=== PATIENT | male | born 1990 | race Caucasian/White ===

== ENCOUNTER 2021-11-30 19:02 | Outpatient (REF) | payer BC, SELFPAY ==
[2021-11-30 20:38] LABS: Abs Immature Grans 0.05 10^3/uL (0.0-0.06); Absolute Eosinophil Count 0.44 10^3/uL (0.0-0.7); Absolute Lymphocyte Count 3.52 10^3/uL (1.2-3.4); Absolute Monocyte Count 1.24 10^3/uL (0.1-0.8); Absolute Neutrophil Count 5.45 10^3/uL (1.2-6.7); Basophils % 0.9; Eosinophils % 4.1; HCT 46.8 % (40.0-50.0); HGB 15.6 g/dL (13.5-17.5); Immature Grans % 0.5; Lymphocytes % 32.6; MCH 28.5 pg (27.0-33.0); MCHC 33.3 % (32.0-36.0); MCV 85.6 fL (80-95); MPV 10.7 fL (8.0-11.0); Monocytes % 11.5; Neutrophils % 50.4; Nucleated RBC 0 %; Platelet Count 323 10^3/uL (130-400); RBC 5.47 10^6/uL (4.36-5.78); RDW 12.7 % (11.8-14.1); RDW-SD 39.9 fL
[2021-11-30 20:40] LABS: Bilirubin Negative (Negative); Blood Trace-lysed (Negative); Clarity Clear (Clear); Glucose Negative (Negative); Ketones Negative (Negative); Leukocyte Esterase Negative (Negative); Nitrite Negative (Negative); Urobilinogen 0.2 EU/dL (Up TO 0.2); pH 5.5 (5-8)
[2021-11-30 21:07] LABS: Bacteria Negative HPF (Negative); C & S Indicated? No; Crystals Negative HPF (Negative); Epithelial Cells Rare HPF (Negative); Mucus Negative (Negative); WBC 0-2 HPF (0-5)
[2021-11-30 21:17] LABS: ALT 82 U/L (16-63); AST 47 U/L (15-37); Albumin 4.3 g/dL (3.4-5.0); Alkaline Phosphatase 72 U/L (46-116); Anion Gap 12.7 mmol/L (3-11); BUN 9 mg/dL (7-18); Bilirubin, Total 0.7 mg/dL (0.2-1.0); CO2 26.3 mmol/L (21.0-32.0); CREATININE 0.8 mg/dL (0.70-1.30); Calcium 8.9 mg/dL (8.5-10.1); Chloride 102 mmol/L (98-107); Glucose 102 mg/dL (74-106); Potassium 3.8 mmol/L (3.5-5.1); Sodium 141 mmol/L (136-145); Total Protein 7.7 g/dL (6.4-8.2)
[2021-12-03 15:35] LABS: Chlamydia Result Negative (Negative); GC Result Negative (Negative)
== END 2021-11-30 19:03 | disposition home or self-care (01) ==
LOC: LBN 19:02
PROVIDERS: PCP Family Medicine; Visit Provider Physician Assistant
DX: R30.0 Dysuria (principal); R21 Rash and other nonspecific skin eruption; R39.9 Unspecified symptoms and signs involving the genitourinary system; Z11.3 Encounter for screening for infections with a predominantly sexual mode of transmission
CPT/HCPCS: 80053; 87491; 87591; 81003; 81015; 85025

== ENCOUNTER 2023-10-04 13:26 | Emergency (ER) | payer BC, SELFPAY ==
[2023-10-04] VITALS (17 sets, daily range): BP systolic 122–149; BP diastolic 81–97; PULSE 56–96; RESP 10–23; TEMP 37; O2SAT 99
--- NOTE | 2023-10-04 13:45 | RT.EKG_ITS ---
APPROVED REPORT Exam: Resting ECG Reason for Exam: Cocaine use Patient Location: E HR:74 bpm ECG Measurements Heart Rate 74 AXIS WI 147 P 60 QRSd 105 QRS 1 QT 405 T 40 QTc 451 Conclusion Sinus rhythm...normal P axis, V-rate 60- 99 Normal sinus rhythm at a rate of 74 with interventricular conduction delay. Normal axis. WI and QTc within normal limits. No acute injury pattern. No prior for comparison.
--- NOTE | 2023-10-04 13:55 | W.ED.GENAD ---
Discharge Plan Disposition Patient Disposition: Home Discharge Details Clinical Impression: Acute respiratory failure with hypoxia and hypercapnia, NAV (acute kidney injury) Primary Care Provider: Linden Stewart ED Provider: Codey Gruber Home Meds and New Rx's Prescriptions: New ondansetron 4 mg tablet,disintegrating 4 mg PO BID 5 Days Qty: 9 0RF buprenorphine-naloxone 8-2 mg tablet, sublingual 1 tab sublingual DAILY Qty: 6 0RF Rx Instructions: You may take 1 tablet/day. If you still feel nauseous and sweating and as if you are in withdrawal you may take a second tablet. Please do not exceed more than 2 tablets/day. No Action sucralfate [Carafate] 1 gram tablet 1 g PO Q6H Qty: 28 0RF Hold Instructions: Pt Stopped/Never Started omeprazole 40 mg capsule,delayed release(DR/EC) 40 mg PO DAILY Qty: 90 0RF Hold Instructions: Pt Stopped/Never Started Discharge Instructions Additional Instructions: You were discharged from the emergency department with a short course of Suboxone which you should take as directed. Please take 1 tablet this afternoon or evening when you begin feeling symptoms of withdrawal. If you still feel symptoms of withdrawal 30 to 45 minutes after taking your first tablet you may take a second. Please do not take more than 2 tablets/day. The [facility] clinic in [place] will follow-up with you in 2 days. If you have any concerns please return to the emergency department. You are also receiving a prescription for nausea medicines which you should take as directed. Please call the [facility] clinic on Friday [phone] HPI General Date/Time Provider Initiated Documentation: 10/04/23 13:40. HPI Narrative: MDM This is an overall well-appearing normothermic and not tachycardic 33-year-old male status post overdose requiring additional naloxone 0.5 mg with mild hypoxia for which patient will undergo chest x-ray. No signs of ischemia on ECG however will obtain troponin to assess for any myocardial injury given cocaine use. No pain or proportion to suggest necrotizing soft tissue infection. Patient is high risk for overdose given reported overdose 2 days ago. He has previously felt suicidal. He is not endorsing suicidal ideation at the moment. We will assess basic electrolytes and CBC in the event that the patient requires a naloxone drip and hospitalization. Patient is interested in a recovery room nurse and a Jaylene patch. 2:17 PM PCO2 61 mmHg. 2:26 PM Patient was placed on end-tidal CO2. He was having difficulty waking up. As a result we will start a naloxone drip at two thirds a wake-up dose. Given that he required 0.5 mg naloxone to wake him up two thirds a wake-up dose is 0.33 mg. When scaled to micrograms per hour per kilogram this translates to a 3 mcg/kg/h. 2:40 PM Patient metabolic panel showing NAV. Hyperglycemia but no anion gap normal bicarbonate?not consistent with DKA. 2:55 PM Patient is amenable to hospitalization. Given history of alcohol use will place on a CIWA protocol. 3:24 PM I spoke with Dr. Way from the hospitalist team. He reported that unfortunately we did not have an ICU bed. As result we will discontinue naloxone drip. Patient began vomiting. We will treat with ondansetron. We will calculate a calcium score and initiate treatment with buprenorphine if patient scores above 8. Will refer to the [facility] clinic and sent home with buprenorphine. Patient is not on methadone. Patient will stay with his former where he does not have access to heroin. Former feels comfortable with this plan as does patient. Patient has not met with a recovery room nurse. I offered the patient transfer however he declined. 3:54 PM Patient is not requiring supplemental oxygen. He has been off of the naloxone drip for approximately 30 minutes. His COWS score is 6. We will hold buprenorphine at this point in time and reassess COWS score. 4:15 PM Patient continues to be breathing well on room air. He has not required additional reversal. 4:30 PM I met with the patient again and he was alert. He denied suicidal ideation. He had taken buprenorphine/naloxone in the past so he was familiar with the effects. He had taken 4 mg doses. I counseled him on using one of the 8 mg buprenorphine tablets and waiting 30 to 45 minutes. We discussed withdrawal symptoms including nausea vomiting and yawning, sweating, restlessness, runny nose bone or joint aches nausea vomiting gooseflesh and yawning. If his symptoms of withdrawal were still significant then I advised him to take a second tablet. I advised him to take no more than 2 tablets/day. I prescribed him a total of 3 days of buprenorphine. Chronic conditions affecting the care of the patient: N/A History obtained from an outside historian: Paramedics External record review: [facility] [place] EMR Diagnostic interpretations performed by me: Per my independent interpretation chest x-ray shows: No acute cardiopulmonary process. Per my independent interpretation EKG shows: Normal sinus rhythm at a rate of 74 with interventricular conduction delay. Normal axis. CA and QTc within normal limits. No acute injury pattern. No prior for comparison. Medications: Naloxone Social determinants of health affecting disposition: N/A Management discussed with: Hospitalist Treatment/interventions considered: Hospitalization but deferred given lack of ICU bed Response to therapies provided: Improved respiratory rate status post naloxone HPI This is a 33-year-old male arrived to the emergency department via paramedics in the setting of an overdose. Patient reportedly overdosed on crack and heroin by smoking. He reportedly smoked 2 bags this morning. He has used IV cocaine and heroin several days ago. He also was resuscitated with outpatient naloxone by paramedics 2 days ago and was not transported to the emergency department. His is in the room with him and notes prior suicidal ideation. Patient is a daily tobacco user and also drinks 12 or more beers per day. He has a history of shakes when he does not drink alcohol but has never been hospitalized. He takes no routine medications. He denies any medical problems. Fevers chills nausea vomiting chest pain but does endorse some shortness of breath. Exam General: Well-appearing in no acute distress speaking in complete sentences. Wearing nasal cannula. Head: Normocephalic, atraumatic. Eye: Extraocular eye movements intact. No conjunctival injection. No scleral icterus. Pupils equal reactive 3 to 2 mm. Ear, nose, mouth, throat: Grossly normal inspection. Normal voice, handling secretions normally. Neck: Trachea midline. Cardiovascular: Well-perfused distal extremities. Regular rate and rhythm Respiratory: Nonlabored respiration. Clear lungs bilaterally Gastrointestinal: Nondistended abdomen. Soft nontender Musculoskeletal: No significant lower extremity edema edema. Moving all 4 extremities spontaneously. Skin: Normal for age and race, grossly normal temperature and turgor. No acute rash. Neurologic: Alert and appropriate, no apparent acute deficits. GCS 15 Psychiatric: Mood and manner are appropriate. Grooming and personal hygiene are appropriate. Related Data Home Medications Medication Instructions Recorded Confirmed omeprazole 40 mg capsule,delayed 40 mg PO DAILY #90 caps 05/22/22 10/04/23 release sucralfate 1 gram tablet (Carafate) 1 g PO Q6H #28 tabs 05/22/22 10/04/23 buprenorphine 8 mg-naloxone 2 mg 1 tab sublingual DAILY #6 tabs 10/04/23 sublingual tablet ondansetron 4 mg disintegrating 4 mg PO BID 5 days #9 tabs 10/04/23 tablet Previous Rx's Medication Instructions Recorded omeprazole 40 mg capsule,delayed 40 mg PO DAILY #90 caps 05/22/22 release sucralfate 1 gram tablet (Carafate) 1 g PO Q6H #28 tabs 05/22/22 buprenorphine 8 mg-naloxone 2 mg 1 tab sublingual DAILY #6 tabs 10/04/23 sublingual tablet ondansetron 4 mg disintegrating 4 mg PO BID 5 days #9 tabs 10/04/23 tablet Allergies Allergy/AdvReac Type Severity Reaction Status Date / Time sulfamethoxazole Allergy Verified 10/04/23 13:27 [From Bactrim] trimethoprim [From Bactrim] Allergy Verified 10/04/23 13:27 General Stated Complaint: OD/Poison ALLAN: 3 PFSH All Active Problems (Updated 10/04/23 @ 14:42 by Codey Gruber MD) NAV (acute kidney injury) (Acute) Acute respiratory failure with hypoxia and hypercapnia (Acute) Medical History ADHD (attention deficit hyperactivity disorder) Anxiety Chronic bronchitis Chronic otitis media Depression Epistaxis High risk sexual behavior History of frequent headaches History of substance abuse Ingrown toenail Learning disability Social History (Updated 05/29/22 @ 10:34 by MARY Ortiz) Smoking/Tobacco Use Status: Current every day Smoking risk assessment performed?: Yes Alcohol Intake: current Alcohol Intake frequency: 3 or more drinks per day Alcohol type: beer Details: Avg. 6 pack/day Drug use: Daily Substance use type: does not use Course Vital Signs Vital signs: Vital Signs Temperature 37.0 C 10/04/23 13:28 Pulse 88 10/04/23 13:28 Respiratory Rate 20 10/04/23 13:28 Blood Pressure 145/94 H 10/04/23 13:28 Pulse Oximetry 99 10/04/23 13:28 Temperature 37.0 C 10/04/23 13:28 Pulse 78 10/04/23 13:30 Pulse 85 10/04/23 13:31 Respiratory Rate 17 10/04/23 13:31 Respiratory Effort Normal 10/04/23 13:32 Respiratory Depth Normal 10/04/23 13:32 Respiratory Pattern Normal 10/04/23 13:32 Blood Pressure 145/94 H 10/04/23 13:30 Blood Pressure Mean 108 10/04/23 13:30 Blood Pressure Position Sitting 10/04/23 13:28 Pulse Oximetry 99 10/04/23 13:28 Oxygen Delivery Method Room Air 10/04/23 13:28 Oxygen Flow Rate 0 10/04/23 13:28 Critical Care Time Critical Care Time Critical Care Time: Yes Total Critical Care Time: 30 Attestation: Acute respiratory failure hypoxia
[2023-10-04] MEDS: Normal Saline 500 ML IV ×2 (13:59→15:31)
[2023-10-04 14:12] LABS: BE (Venous) 7 mmol/L (-2-3); HCO3 (Venous) 32 mmol/L (23-28); O2 Sat (Venous) 54 %; TCO2 (Venous) 28 mmol/L (24-29); pH (Venous) 7.33 (7.31-7.41); pO2 (Venous) 29 mmHg
--- NOTE | 2023-10-04 14:16 | DI.RAD_ITS ---
Exam(s) XR PORTABLE CHEST AP EXAM: XR PORTABLE CHEST AP CLINICAL HISTORY: Hypoxia. TECHNIQUE: 2D digital imaging was performed. COMPARISON: No exams were available for comparison FINDINGS: Single AP portable view. Heart size is upper normal. The mediastinum is not widened. Lungs are clear. No infiltrates nor obvious pleural effusions. IMPRESSION: No acute pulmonary findings on this single AP portable view of the chest. DATA REPOSITORY: RADIATION DOSE DELIVERED:
[2023-10-04 14:17] LABS: pCO2 (Venous) 61 mmHg (41-51)
[2023-10-04 14:32] LABS: BUN 6 mg/dL (7-18); CREATININE 1.2 mg/dL (0.70-1.30); Calcium 9.3 mg/dL (8.5-10.1); Chloride 106 mmol/L (98-107); Estimated GFR 82.92 (mL/min/1.73m2); Glucose 182 mg/dL (74-106); Potassium 4.5 mmol/L (3.5-5.1); Sodium 145 mmol/L (136-145); Troponin I < 50 ng/L (<or=60)
--- NOTE | 2023-10-04 14:44 | DI.VRAD_ITS ---
PROCEDURE INFORMATION: Exam: XR Chest Exam date and time: 10/04/2023 2:10 PM Age: 33 years old Clinical indication: Shortness of breath TECHNIQUE: Imaging protocol: Radiologic exam of the chest. Views: 1 view. COMPARISON: No relevant prior studies available. FINDINGS: Lungs: Unremarkable. No consolidation. Pleural spaces: Unremarkable. No pleural effusion. No pneumothorax. Heart/Mediastinum: Unremarkable. No cardiomegaly. Bones/joints: Unremarkable. IMPRESSION: No acute findings. Dictated and Authenticated by: Refugio Rawls MD. Ordering:ALANA Alegre MD
--- NOTE | 2023-10-04 15:33 | NUR.NOTE ---
Nursing Note:patient had x1 episode of emesis. Zofran given as ordered. Patient stated I feel like shit
[2023-10-04] MEDS: Ondansetron 4 MG/2 ML VIAL IVP (15:34)
--- NOTE | 2023-10-04 16:16 | NUR.NOTE ---
Referral faxed for Pt to [facility] for opiate withdrawl will be starting Suboxone and would like him to be seen Friday
--- NOTE | 2023-10-06 15:36 | NUR.NOTE ---
Accessed chart to determine who saw the patient as a provider. Nursing Note:
== END 2023-10-04 16:42 | disposition home or self-care (01) ==
LOC: ER 16:53
PROVIDERS: Emergency Provider Emergency Medicine; PCP Family Medicine
DX: T40.1X1A Poisoning by heroin, accidental (unintentional), initial encounter (principal); J96.01 Acute respiratory failure with hypoxia; J96.02 Acute respiratory failure with hypercapnia; F10.10 Alcohol abuse, uncomplicated; F17.200 Nicotine dependence, unspecified, uncomplicated; N17.9 Acute kidney failure, unspecified
CPT/HCPCS: 80048; 82805; 86900; 86901; 93005; 96361; 96365; 96372; 96375; 99291; 71045; 84484; 93010; J2310; J2405

== ENCOUNTER 2023-10-06 16:39 | Emergency (ER) | payer BC, SELFPAY ==
[2023-10-06 16:41] VITALS: BP 151/80; PULSE 73; RESP 16; TEMP 36.6; O2SAT 97
--- NOTE | 2023-10-06 16:57 | ED.GENADUL_ITS ---
Discharge Plan Disposition Patient Disposition: Home Condition: Stable Discharge Details Clinical Impression: Opioid use disorder Primary Care Provider: Linden Stewart ED Provider: Philippe Sheehan Home Meds and New Rx's Prescriptions: Continued buprenorphine-naloxone 8-2 mg tablet, sublingual 1 tab sublingual DAILY Qty: 6 0RF Rx Instructions: You may take 1 tablet/day. If you still feel nauseous and sweating and as if you are in withdrawal you may take a second tablet. Please do not exceed more than 2 tablets/day. Discharge Instructions Instructions: Opioid Use Disorder (ED) Additional Instructions: You were discharged from the emergency department with a short course of Suboxone which you should take as directed. Please take 1 tablet tomorrow AM when you begin feeling symptoms of withdrawal. If you still feel symptoms of withdrawal 30 to 45 minutes after taking your first tablet you may take a second. Please do not take more than 2 tablets/day. Please followup with [facility] clinic tomorrow morning. If you have any concerns please return to the emergency department. Referrals: [facility] [Outside] Linden Stewart [Primary Care Provider] - Medical Decision Making Patient was seen here on 10/04/2023 for acute opioid overdose that was treated with naloxone. He was started on Suboxone which he has been taking as prescribed and has had positive effects. He has run out of his prescribed dosing. He notes he has not yet been able to follow-up with [facility] clinic but is scheduled to follow-up on . He has follow-up with his PCP tomorrow. He is here seeking additional buprenorphine. I will prescribe another short course to bridge him to [facility]. I am hopeful that he will be able to see seen in an expedited fashion tomorrow for intake. Referral was sent. Patient is agreeable with plan. Usual and customary discharge instructions were reviewed with the patient. HPI General Mode of arrival: ambulatory . Date/Time Provider Initiated Documentation: 10/06/23 16:57 . Limitations to Documentation: no limitations . Information obtained by: patient . HPI Narrative: 33-year-old male seen here on 10/04/2023 for acute opioid overdose requiring naloxone treatment. He was started on Suboxone and discharged to follow-up at opioid use disorder treatment clinic. He has follow-up appointment on and has run out of his Suboxone dosing. He is here requesting additional dosing. Related Data Home Medications Medication Instructions Recorded Confirmed buprenorphine 8 mg-naloxone 2 mg 1 tab sublingual DAILY #6 tabs 10/06/23 sublingual tablet Previous Rx's Medication Instructions Recorded buprenorphine 8 mg-naloxone 2 mg 1 tab sublingual DAILY #6 tabs 10/06/23 sublingual tablet Allergies Allergy/AdvReac Type Severity Reaction Status Date / Time sulfamethoxazole Allergy Verified 10/06/23 16:45 [From Bactrim] trimethoprim [From Bactrim] Allergy Verified 10/06/23 16:45 General Stated Complaint: Recheck ALLAN: 4 Review of Systems All systems reviewed & are unremarkable except as noted in HPI and below Constitutional Constitutional: Denies fever(s) Cardiovascular Cardiovascular: Denies chest pain PFSH All Active Problems (Updated 10/06/23 @ 16:58 by Philippe Sheehan MD) Opioid use disorder (Acute) NAV (acute kidney injury) (Acute) Acute respiratory failure with hypoxia and hypercapnia (Acute) Medical History ADHD (attention deficit hyperactivity disorder) Anxiety Chronic bronchitis Chronic otitis media Depression Epistaxis High risk sexual behavior History of frequent headaches History of substance abuse Ingrown toenail Learning disability Social History (Updated 05/29/22 @ 10:34 by MARY Ortiz) Smoking/Tobacco Use Status: Current every day Smoking risk assessment performed?: Yes Alcohol Intake: current Alcohol Intake frequency: 3 or more drinks per day Alcohol type: beer Details: Avg. 6 pack/day Drug use: Daily Substance use type: does not use Exam Const General: cooperative and no acute distress HENMT Mouth: moist mucous membranes Cardio Rate: regular rate and not tachycardic Neuro General: patient alert, patient awake and tone normal Psych Appearance: grossly normal Mental Status: mental status grossly normal Speech and Movement: speech and movement normal Course Vital Signs Vital signs: Vital Signs Temperature 36.6 C 10/06/23 16:41 Pulse 73 10/06/23 16:41 Respiratory Rate 16 10/06/23 16:41 Blood Pressure 151/80 H 10/06/23 16:41 Pulse Oximetry 97 10/06/23 16:41 Temperature 36.6 C 10/06/23 16:41 Temperature Source Temporal Artery Scan 10/06/23 16:41 Pulse 73 10/06/23 16:41 Respiratory Rate 16 10/06/23 16:41 Respiratory Effort Normal 10/06/23 16:43 Blood Pressure 151/80 H 10/06/23 16:41 Blood Pressure Position Sitting 10/06/23 16:41 Pulse Oximetry 97 10/06/23 16:41 Oxygen Delivery Method Room Air 10/06/23 16:41 Oxygen Flow Rate 0 10/06/23 16:41 Pain Level 0 10/06/23 16:41 PAWSS Have you Been Recently Intoxicated or Drunk Within the Last 30 days?: Yes Have you Ever Experienced Previous Episodes of Alcohol Withdrawal?: No Have you ever Experienced Withdrawal Seizures?: No Have you ever Experienced Delirium Tremens(DT)s?: Yes Have you ever undergone Alcohol Rehabilitation Treatment (i.e, inpt ot outpatient treatment programs)?: Yes Have you ever Experienced Blackouts?: Yes Have you ever Combined Alcohol with other Downers within the last 90 days?: No Have you ever Combined Alcohol with any other Substance of Abuse during the last 90 days?: No Result: 4
[2023-10-06 17:16] VITALS: BP 151/80; PULSE 73; RESP 16; O2SAT 97
--- NOTE | 2023-10-06 17:35 | NUR.NOTE ---
Referral to [facility] was faxed to them along with today's note and the one from the . Nursing Note:
== END 2023-10-06 17:22 | disposition home or self-care (01) ==
PROVIDERS: Emergency Provider Student in an Organized Health Care Education/Training Program; PCP Family Medicine
DX: F11.90 Opioid use, unspecified, uncomplicated (principal)
CPT/HCPCS: 99282

== ENCOUNTER 2025-09-27 11:24 | Day surgery (SDC) | payer OTHER, SELFPAY ==
[2025-09-27] VITALS (21 sets, daily range): BP systolic 93–120; BP diastolic 46–83; PULSE 60–88; RESP 12–18; TEMP 36.2–36.8; O2SAT 87–100; BMI 39.2
--- NOTE | 2025-09-27 07:50 | W.PM.DSUDISC ---
Date of service: 09/27/25 Discharge Plan Disposition Patient Disposition: Home Condition: Good Discharge Details Reason For Visit: Left cubital tunnel syndrome Attending Provider: Kuldip Mason Primary Care Provider: Linden Stewart Home Meds and New Rx's Prescriptions: New acetaminophen 500 mg tablet 500 mg PO Q6H PRN (Reason: pain) Qty: 60 2RF hydrocodone-acetaminophen 5-325 mg tablet 1 tab PO Q6H PRN (Reason: severe pain) Qty: 6 0RF Rx Instructions: Take one tablet up to every 6 hours as needed for severe postoperative pain ibuprofen 600 mg tablet 600 mg PO TID PRN (Reason: pain) Qty: 60 0RF Discontinued buprenorphine-naloxone 8-2 mg tablet, sublingual 1 tab sublingual DAILY Qty: 6 0RF Rx Instructions: You may take 1 tablet/day. If you still feel nauseous and sweating and as if you are in withdrawal you may take a second tablet. Please do not exceed more than 2 tablets/day. Discharge Instructions Additional Instructions: Cubital Tunnel Decompression Discharge Instructions Activity: You should stay in the sling for the first 2 weeks. You may come out of the sling for gentle motion and hygiene but should largely remain in the sling to allow the incision site to heal. Gentle motion of the elbow, hand, wrist, and fingers is okay and encouraged after the first few days, but no repetitive activites nor heavy lifting. You may apply ice. Medications: - You should take Tylenol and Ibuprofen around the clock. - You have been prescribed Hydrocodone for breakthrough pain. Dressings: - The initial surgical dressing should stay in place for 3 days. It may then be removed and kept clean and dry. You should cover with a light gauze dressing. - You may shower after 3 days and get the wound wet. Follow-up: 10 days Stand Alone Forms: Portal Information Equipment/Supplies: Sling Activity:: Elevate Remove Dressings/Wound Care:: 72 hours Shower/Bathe:: 72 hours Diet:: As Tolerated Discharge Orders Discharge Orders: Discharge Order (Routine); Ordered 09/27/25 Ordered By: Yumi Sauer
--- NOTE | 2025-09-27 11:04 | HPE_ITS ---
Date of service: 09/27/25 Time of Service: 12:30 Assessment and Plan Assessment and plan (1) Cubital tunnel syndrome on left: Status: Acute Assessment and plan: Plan: Educated patient on surgery covering surgical technique, recovery process, benefits and risks including but not limited to risk of infection, blood clot, damage to soft tissue/blood vessels/nerves in detail. After discussion patient gives verbal understanding of risks and elects to proceed with scheduling surgery. Patient had opportunity to have questions answered to their satisfaction. History of Present Illness History of Present Illness Chief Complaint: Bilateral, left worse than right, cubital tunnel syndrome Narrative: Fermín is a 35-year-old [id number] male who presents to hospital for left cubital tunnel decompression and possible anterior subcutaneous transposition. For more thorough history please review patient's orthopedic note from 08/22/2025. Patient denies any change in symptoms since last visit. No chest pain or shortness of breath. No recent illness. Review of Systems All systems reviewed & are unremarkable except as noted in HPI and below Cardiovascular Cardiovascular: Denies chest pain and Denies dyspnea Respiratory Respiratory: Denies dyspnea PFSH All Active Problems Paresthesia of hand, bilateral (Acute) Pain of both elbows (Acute) Left lateral epicondylitis (Acute) Cubital tunnel syndrome on right (Acute) Reports more mild; not reproduced on exam Cubital tunnel syndrome on left (Acute) Medical History Ingrown toenail Chronic bronchitis High risk sexual behavior ADHD (attention deficit hyperactivity disorder) Chronic otitis media History of frequent headaches Depression Anxiety Epistaxis Learning disability History of substance abuse Surgical History H/O umbilical hernia repair Social History Smoking/Tobacco Use Status: Current every day Tobacco Type: cigarettes Smoking risk assessment performed?: Yes Alcohol Intake: former Details: Avg. 6 pack/day Drug use: Daily Substance use type: does not use Meds Allergies and Home Medications Allergies Allergy/AdvReac Type Severity Reaction Status Date / Time sulfamethoxazole (From Allergy Unknown Unknown Verified 08/22/25 09:12 Bactrim) trimethoprim (From Bactrim) Allergy Unknown Unknown Verified 08/22/25 09:12 Home Medications ?Medication ?Instructions ?Recorded ?Confirmed ?Type acetaminophen 500 mg tablet 500 mg PO Q6H PRN pain #60 tabs 09/27/25 Rx buprenorphine 8 mg-naloxone 2 mg film 09/27/25 Histor y sublingual film hydrocodone 5 mg-acetaminophen 325 1 tab PO Q6H PRN se delia pain #6 09/27/25 Rx mg tablet tabs ibuprofen 600 mg tablet 600 mg PO TID PRN pain #60 t abs 09/27/25 Rx Exam Const General: cooperative, healthy appearing and comfortable Resp Effort & Inspection: normal respiratory effort and able to speak in complete se ntences Auscultation: clear to auscultation bilaterally Cardio Rate: regular rate Rhythm: regular rhythm Heart Sounds: S1 normal and S2 normal VTE Prohylaxis Risk Level: Low Risk Contraindications: None Prophylaxis: Patient ambulatory Time Spent Time spent with Patient: <40 minutes Time was spent: preparing to see the patient(eg.review tests), obtaining and/or reviewing separately otained hiistory, ordering medications,tests, procedures and counseling the patient
[2025-09-27] MEDS: Acetaminophen 500 MG TAB 1000 MG PO (11:57)
[2025-09-27] MEDS: Celecoxib 200 MG CAP 400 MG PO (11:57)
[2025-09-27] MEDS: Lactated Ringers 1,000 ML 80 ML IV (12:22)
--- NOTE | 2025-09-27 13:34 | ANES.PREOP_ITS ---
General Info Date of Service Date Performed: 09/27/25 Height: 5 ft 10 in Weight: 124.2 kg Body Mass Index (BMI): 39.2 Surgical Procedure: Operation Date: 09/27/25 14:25 Proposed Procedure Side Surgeon p Cubital Tunnel Release Left Kuldip Mason MD Meds Allergies and Home Medications Allergies Allergy/AdvReac Type Severity Reaction Status Date / Time sulfamethoxazole (From Allergy Unknown Unknown Verified 08/22/25 09:12 Bactrim) trimethoprim (From Bactrim) Allergy Unknown Unknown Verified 08/22/25 09:12 Home Medication ?Medication ?Instructions ?Recorded acetaminophen 500 mg tablet 500 mg PO Q6H PRN pain #60 tabs 09/27/25 buprenorphine 8 mg-naloxone 2 mg film 09/27/25 sublingual film hydrocodone 5 mg-acetaminophen 325 1 tab PO Q6H PRN se delia pain #6 09/27/25 mg tablet tabs ibuprofen 600 mg tablet 600 mg PO TID PRN pain #60 t abs 09/27/25 Current Visit Medications: Current Medications Generic Name Dose Route Start Last Admin Trade Name Freq PRN Reason Stop Dose Admin Acetaminophen 1,000 mg 09/27/25 06:00 09/27/25 11:57 Acetaminophen 500 Mg Tab PO 09/27/25 23:59 1,000 mg PREOP KRYSTAL Administration Acetaminophen 650 mg 09/27/25 07:23 Acetaminophen 325 Mg Tab PO 10/27/25 07:22 Q4H PRN PRN Hydrocodone Bitart/Acetaminophen 0 tab 09/27/25 07:23 Hydrocodone 5/Acetaminophen 325 Tab PO 10/27/25 07:22 Q3H PRN PRN Pain Celecoxib 400 mg 09/27/25 06:00 09/27/25 11:57 Celecoxib 200 Mg Cap PO 09/27/25 23:59 400 mg PREOP KRYSTAL Administration Ringer's Solution 1,000 mls @ 80 mls/hr 09/27/25 06:00 09/27/25 12:22 IV 09/27/25 23:59 80 mls/hr INFUSION KRYSTAL Administration Cefazolin Sodium 3,000 mg/ 100 mls @ 200 mls/hr 09/27/25 06:00 Sodium Chloride IV 09/27/25 23:59 PREOP KRYSTAL Tranexamic Acid/Sodium Chloride 1,000 mg in 100 mls @ 600 mls/hr 09/27/25 06:00 IVPB 09/27/25 23:59 PREOP KRYSTAL Sodium Chloride 0 ml 09/27/25 06:00 Normal Saline Flush 10 Ml Syr IV 09/27/25 23:59 PRN PRN Sodium Chloride 0 ml 09/27/25 06:00 Normal Saline 10 Ml Vial IJ 09/27/25 23:59 DIRECTED PRN Sterile Water 0 ml 09/27/25 06:00 Water,Injection,Sterile 10 Ml Vial IJ 09/27/25 23:59 DIRECTED PRN PFSH Active Problems Active Problems: Problem Status Onset Code Paresthesia of hand, bilateral Acute R20.2 Pain of both elbows Acute M25.521, M25.522 Left lateral epicondylitis Acute M77.12 Cubital tunnel syndrome on right Acute G56.21 Cubital tunnel syndrome on left Acute G56.22 Medical History Medical History Ingrown toenail Chronic bronchitis High risk sexual behavior ADHD (attention deficit hyperactivity disorder) Chronic otitis media History of frequent headaches Depression Anxiety Epistaxis Learning disability History of substance abuse Surgical History Surgical History (Updated 09/26/25 @ 08:26 by Sary Allen RN) H/O umbilical hernia repair Tobacco Smoking/Tobacco Use Status: Current every day Tobacco Type: cigarettes Smoking cigarettes per day: 20 Alcohol Alcohol Intake: former Details: Avg. 6 pack/day Substance Use Substance use: Daily Substance use type: does not use Vital Signs and Lab Results Vital Signs Most Recent Vital Signs in EMR: Most Recent Vital Signs Temp Pulse Resp BP Pulse Ox 36.8 C 76 16 120/75 97 09/27/25 11:50 09/27/25 11:50 09/27/25 11:50 09/27/25 11:50 09/27/25 11:50 Imaging and Studies Imaging and Studies Study information below may be from another EMR and interpreted by another provider. Please see original notes in EMR for more complete details. EKG Summary: EKG PATIENT NAME: Fermín Cantu UNIT #: [id number] ORDERING PROVIDER: Codey Gruber M.D. PRIMARY CARE PROVIDER: JUAN ROBERTS MD DATE/TIME OF SERVICE: 10/04/23 1354 : 1990 PERFORMING LOCATION: ER APPROVED REPORT Exam: Resting ECG Reason for Exam: Cocaine use Patient Location: E HR:74 bpm ECG Measurements Heart Rate [address] 147 P 60 QRSd 105 QRS 1 QT 405 T40 QTc 451 Conclusion Sinus rhythm...normal P axis, V-rate 60- 99 Normal sinus rhythm at a rate of 74 with interventricular conduction delay. Normal axis. CT and QTc within normal limits. No acute injury pattern. No prior for comparison. <Electronically signed by Codey Gruber M.D. in [facility]> E-Sign Date: 10/04/23 E-Sign Time: 1406 ADDENDUM APPROVED REPORT Exam: Resting ECG Reason for Exam: Cocaine use Patient Location: E HR:74 bpm ECG Measurements Heart Rate [address] 147 P 60 QRSd 105 QRS 1 QT 405 T40 QTc 451 Conclusion Sinus rhythm...normal P axis, V-rate 60- 99 Normal sinus rhythm at a rate of 74 with interventricular conduction delay. Normal axis. CT and QTc within normal limits. No acute injury pattern. No prior for comparison. I have reviewed and I agree with the emergency room physician's ECG interpretation. Electronically signed by: <Electronically signed by Daphney Feliciano M.D. in [facility]> 10/06/23 0852 Cosigned by: Anesthesia Assessment and Plan Anesthesia History Personal History: No History of Anesthesia Complications Family History: No Family History of Anesthesia Complications Exercise Tolerance Exercise Tolerance: Metabolic Equivalents>4 Pertinent Negatives Pertinent Negatives: No Symptoms of GERD Cardiac & Pulmonary Exam Cardiac Exam: Normal S1/S2 Heart Sounds Pulmonary Exam: Clear Bilateral Breath Sounds Implantable Cardiac Device Does patient have a Pacemaker or an ICD?: No Airway Exam Known Difficult Airway: No Mallampati Class: 2 Mouth Opening: Normal (> 3cm) Thyromental Distance: Greater than 3 cm Neck Range of Motion: Full ROM Neck Circumference: Normal Teeth Condition: Normal Dentition ASA Classification ASA Score: ASA 3 Emergency Case?: No NPO Status NPO Status: NPO Clears >2 hours, Solids >8 hours Anesthesia Plan Resuscitation Status: Full Code Anesthesia Technique: General Anesthesia Airway Planned: LMA Monitors Used: Standard Monitors
[2025-09-27] MEDS: ceFAZolin 3,000 MG in Normal Saline 100 ML 200 MG IV (13:57)
[2025-09-27] MEDS: TRANEXAMIC ACID/SOD. CHL. 1,000 MG/100 ML BAG 600 MG IVPB (14:05)
[2025-09-27] MEDS: Bupivacaine 0.25% Pres-Free W/EPI 30 ML VIAL (14:31)
--- NOTE | 2025-09-27 16:00 | W.ANESPOSTOP ---
Postoperative Evaluation Date, Time and Location Date Performed: 09/27/25 Time Performed: 16:00 Patient Location: Day Surgery Unit Vital Signs Most Recent Imported Vital Signs: Most Recent Vital Signs Temp Pulse Resp BP Pulse Ox 36.2 C L 73 16 108/78 99 09/27/25 15:30 09/27/25 15:30 09/27/25 15:30 09/27/25 15:30 09/27/25 15:30 Pain Score Most Recent Pain Score: Most Recent Pain Score Pain Level 0 09/27/25 15:30 Assessment Mental Status: Awake (Alert & Oriented to Patient Baseline) Airway and Respiratory Function: Patent airway with normal (patient baseline) respiratory exam Cardiovascular Function: Hemodynamically Stable Hydration Status: Adequately Hydrated Nausea & Vomiting: No Nausea or Vomiting Pain: Pt. Denies Any Pain Peripheral Nerve Block: Patient did not receive a nerve block
--- NOTE | 2025-09-27 17:29 | W.PM.OP ---
Operative Note Operative Note PRE-OP DIAGNOSIS: Left cubital Tunnel Syndrome POST-OP DIAGNOSIS: same PROCEDURE: Left cubital Tunnel Decompression SURGEON: Kuldip Mason ANESTHESIA TYPE: General LMA/ETT Refer to Anesthesia Record ESTIMATED BLOOD LOSS: 0 PATHOLOGY: none sent TOURNIQUET TIME: 22 COMPLICATIONS: None Patient was transported to: PACU Patient's condition: stable Indications: Caio is a 35-year-old male who has had symptoms of cubital tunnel syndrome. Nonoperative treatment options had been trialed. Nerve conduction studies identified the cubital tunnel as the point of compression. Given failure of nonoperative treatments and persistent symptoms, I offered operative intervention. I reviewed the technical details of a cubital tunnel decompression with possible anterior subcutaneous transposition. I reviewed the risk of the procedure to include bleeding, infection, pain, stiffness, tendon instability, damage to the superficial radial nerve, and complete release. Despite these risks, the patient elected to proceed. Findings: There was a tightened cubital tunnel. This was notably tight at the level of the medial epicondyle and extending into the flexor carpi ulnaris muscle belly. The muscle is tightly adherent to the nerve. The ulnar nerve was release from the first motor branch distally through the [place] of [place] proximally. Procedure Description: Caio was greeted in the preoperative holding area. Name and surgical site were confirmed. The history and physical was completed. The consent was reviewed the patient and signed. He was taken back to the operating room. The patient was placed in the supine positioned and a general anesthetic was administered. The left was then prepped with ChloraPrep and draped in a standard fashion after a nonsterile tourniquet was placed high up into the axilla of the arm. Prophylactic antibiotics in the form of cefazolin were administered. A timeout was performed for safe surgery. The surgical site was drawn on the skin as was the medial epicondyle borders. The planned surgical field was anesthetized with 1% lidocaine with epinephrine. The limb was exsanguinated and the tourniquet was inflated where it stayed for 22 minutes. An 8 cm incision was made curvilinearly around the medial elbow. The skin was incised only. The deep tissue and subcutaneous fat was dissected with a tenotomy scissors trying to protect any branches of the medial antebrachial cutaneous nerve. Any branches that were identified were retracted out of the way. The ulnar nerve was palpated and identified. A small window into the cubital tunnel, sheath overlying the nerve, was created and the nerve was able to be palpated with the [place]. A Metzenbaum scissor was then used to open up the sheath starting with Foster's ligament. I then worked distal over the ulnar nerve releasing any constraints against the nerve all the way to the fascia of the FCU muscle belly. This muscle belly was bluntly all the way down to the first motor branch of the ulnar nerve and the overlying fascia was incised. The muscle was tightly adherent to the nerve and accessing the space was challenging. Slowly, the muscle was elevated off the nerve and fascia around the muscle and the muscle itself was split so there was no pressure against the ulnar nerve. Likewise starting there at the medial epicondyle, I proceeded to work proximally to release any constraints over the ulnar nerve. This was taken all the way to the arc[place] of [place]. The medial intermuscular septum was also palpated and any sharp edges against the ulnar nerve were resected and released. After fully releasing the nerve it was inspected visually. I was also able to palpate the nerve fully and reach one finger up into the proximal and distal aspects to make sure there were no constraints against the nerve. A freer elevator was also used to slide easily against the ulnar nerve without any points of constriction. The arm was then taken through range of motion. The ulnar nerve did not sublux/dislocate out of its groove behind the medial epicondyle. Therefore, no transposition was performed. The tourniquet was then deflated. Any areas of bleeding were cauterized with bipolar electrocautery. The wound was thoroughly irrigated. The deep tissue was closed with a 3-0 Vicryl. The skin was closed with a 4-0 nylon. The wound was dressed with Xeroform, 4 x 4's, ABD, Kerlix and an Darshan wrap. Caio was transferred back to the PACU in a stable condition. Date of Procedure: 09/27/25
== END 2025-09-27 16:13 | disposition home or self-care (01) ==
PROVIDERS: PCP Family Medicine; Visit Provider Student in an Organized Health Care Education/Training Program
PROC: (CPT 29848; principal; 2025-09-27 14:15)
DX: G56.22 Lesion of ulnar nerve, left upper limb (principal)
CPT/HCPCS: 29848; J0690; J2003; J2250; J2405; J2704; J3010; J3475